=== PATIENT | female | born 1950 | race Caucasian/White ===

== ENCOUNTER 2016-06-17 09:09 | Day surgery (SDC) | payer MEDICARE, OTHER ==
[~2016-06-17 09:09] MED LIST: KETOROLAC TROMETHAMINE 0.45% 4 DROP/0.4 ML DROPERETTE OS PRN
[2016-06-17] MEDS: TROPICAMIDE 1% OPH SOLN 3 ML OS PRN ×3 (09:31→09:43)
[2016-06-17] MEDS: CYCLOPENTOLATE 0.2%/PHENYLEPHRINE 1% OPH SOLN 2 ML OS PRN ×3 (09:31→09:43)
[2016-06-17] MEDS: BESIFLOXACIN HCL 0.6% OPH SUSP 5 ML BOTTLE OS PRN ×4 (09:31→10:22)
[2016-06-17] MEDS: TETRACAINE HCL 0.5% OPH SOLN 2 ML OS PRN ×3 (09:31→09:57)
[2016-06-17] MEDS ORDERED: PHENYLEPHRINE/KETOROLAC 1%-0.3% 4 ML VIAL ONE (09:33)
[2016-06-17] MEDS ORDERED: LIDOCAINE 1% INJ-PF (10 MG/ML) 30 ML SDV ONE (09:33)
[2016-06-17] MEDS ORDERED: CHONDR SU A NA/HYALUR INTRAOC KIT (SURGICARE) ONE (09:33)
[2016-06-17] MEDS ORDERED: FENTANYL CITRATE INJ/PF 100 MCG/2 ML AMPUL ONE (09:44)
[2016-06-17] MEDS ORDERED: MIDAZOLAM 2 MG/2 ML INJ ONE (09:44)
--- NOTE | 2016-06-17 13:38 | [facility] DISCHARGE SUMMARY E ---
[facility] Discharge Summary NAME: DARWIN SMITH AGE: 66Y ADMITTED: 06/17/2016 DISCHARGED: 06/17/2016 HOSPITAL COURSE: This is a 66-year-old female who underwent cataract extraction of the left eye. DIAGNOSIS: Cataract, left eye. INDICATIONS: She underwent surgery because she was having difficulty driving secondary to glare from headlights and trouble seeing for quilting. DISCHARGE INSTRUCTIONS: She should be on a regular diet. No bending at her waist. No heavy lifting. She should use her Besivance, Ilevro, and Durezol at 3 p.m. and 8 p.m. and sleep with a rigid shield. I will see her for her 1 day postoperative tomorrow. DICTATING PHYSICIAN: LUIS LAWTON M.D. 1211M [id number] PHY#: [id number] ID: [id number] JOB#: [id number] ACCT: [id number] cc:LUIS LAWTON M.D. >
--- NOTE | 2016-06-17 13:38 | [facility] OPERATIVE REPORT E ---
[facility] Operative Report NAME: DARWIN SMITH AGE: 66Y DATE OF SURGERY: 06/17/2016 ROOM: PREOPERATIVE DIAGNOSIS: Cataract, left eye. POSTOPERATIVE DIAGNOSIS: Cataract, left eye. OPERATION: Cataract extraction with intraocular lens implant of the left eye. SURGEON: LUIS LAWTON M.D. ANESTHESIA: Topical. PROCEDURE: After obtaining appropriate consent, the patient's left eye was prepped and draped in sterile fashion as well as the surgeon in a sterile manner and cataract surgery was started. First a paracentesis blade was used to make a small side-port incision. Viscoelastic was used to inflate the anterior chamber. Next a 2.4 mm incision was made with the paracentesis blade. A continuous capsulorrhexis incision was made using a cystotome and Utrata forceps. Following this hydrodissection was carried out to make the lens fully loose and mobile and it was rotated 90 degrees. Following this, a sshirj-hbw-ttgzinu technique was used to phacoemulsify the lens with a CDE of 6.43. The remaining cortex was removed with irrigation/aspiration. Provisc was instilled into the capsular bag to inflate the bag. A SN60WF, 23.0 diopter lens was placed. The remaining viscoelastic material was removed with irrigation/aspiration. Following this, a 10-0 nylon suture was used to close the incision and it was found to be watertight. Vigamox was instilled in the eye and a protective shield was placed over the eye. The patient returned to the postoperative recovery in stable condition. DICTATING PHYSICIAN: LUIS LAWTON M.D. [id number] [id number] PHY#: [id number] ID: [id number] JOB#: [id number] ACCT: [id number] cc:LUIS LAWTON M.D. >
== END 2016-06-17 11:09 | disposition home or self-care (01) ==
LOC: SC 09:09
PROVIDERS: ATTEND Internal Medicine
PROC: 08RK3JZ Replacement of Left Lens with Synthetic Substitute, Percutaneous Approach (ICD-10-PCS; principal; 2016-06-17 10:00)
DX: H25.13 Age-related nuclear cataract, bilateral (principal); I10 Essential (primary) hypertension; M19.90 Unspecified osteoarthritis, unspecified site; E03.9 Hypothyroidism, unspecified; M79.7 Fibromyalgia; G25.0 Essential tremor; H18.50 Unspecified hereditary corneal dystrophies; H40.1414 Capsular glaucoma with pseudoexfoliation of lens, right eye, indeterminate stage; H43.812 Vitreous degeneration, left eye; Z88.4 Allergy status to anesthetic agent; Z79.899 Other long term (current) drug therapy; Z88.0 Allergy status to penicillin
CPT/HCPCS: 66984; V2632; J2250; J3490 ×2; A9270; J3010; C9447; 142

== ENCOUNTER 2016-07-08 06:52 | Day surgery (SDC) | payer MEDICARE, OTHER ==
[~2016-07-08 06:52] MED LIST changes: +KETOROLAC TROMETHAMINE 0.45% 4 DROP/0.4 ML DROPERETTE OD PRN; -KETOROLAC TROMETHAMINE 0.45% 4 DROP/0.4 ML DROPERETTE OS PRN
[2016-07-08] MEDS: TETRACAINE HCL 0.5% OPH SOLN 2 ML OD PRN ×3 (07:05→07:55)
[2016-07-08] MEDS: TROPICAMIDE 1% OPH SOLN 3 ML OD PRN ×3 (07:06→07:32)
[2016-07-08] MEDS: CYCLOPENTOLATE 0.2%/PHENYLEPHRINE 1% OPH SOLN 2 ML OD PRN ×3 (07:06→07:32)
[2016-07-08] MEDS ORDERED: LIDOCAINE 1% INJ-PF (10 MG/ML) 30 ML SDV ONE (07:07)
[2016-07-08] MEDS: BESIFLOXACIN HCL 0.6% OPH SUSP 5 ML BOTTLE OD PRN ×4 (07:07→08:22)
[2016-07-08] MEDS ORDERED: EPINEPHRINE INJ/PF 1 MG/1 ML AMPULE ONE (07:07)
[2016-07-08] MEDS ORDERED: PHENYLEPHRINE/KETOROLAC 1%-0.3% 4 ML VIAL ONE (07:33)
[2016-07-08] MEDS ORDERED: FENTANYL CITRATE INJ/PF 100 MCG/2 ML AMPUL ONE (07:35)
[2016-07-08] MEDS ORDERED: MIDAZOLAM 2 MG/2 ML INJ ONE ×3 (07:35→08:10)
[2016-07-08] MEDS: CHONDR SU A NA/HYALUR INTRAOC KIT (SURGICARE) ONE ×2 (08:13)
--- NOTE | 2016-07-08 12:34 | [facility] OPERATIVE REPORT E ---
[facility] Operative Report NAME: DARWIN SMITH AGE: 66Y DATE OF SURGERY: ROOM: PREOPERATIVE DIAGNOSIS: CATARACT, RIGHT EYE. POSTOPERATIVE DIAGNOSIS: CATARACT, RIGHT EYE. OPERATION: Cataract extraction with intraocular lens implant of the right eye. SURGEON: LUIS LAWTON M.D. ANESTHESIA: Topical. PROCEDURE: After obtaining appropriate consent, the patient's right eye was prepped and draped in sterile fashion as well as the surgeon in a sterile manner and cataract surgery was started. First a paracentesis blade was used to make a small side-port incision. Viscoelastic was used to inflate the anterior chamber. Next a 2.4 mm incision was made with the paracentesis blade. A continuous capsulorrhexis incision was made using a cystotome and Utrata forceps. Following this hydrodissection was carried out to make the lens fully loose and mobile and it was rotated 90 degrees. Following this, a shxgzc-jfw-fssszpl technique was used to phacoemulsify the lens with a CDE of 6.73. The remaining cortex was removed with irrigation/aspiration. Provisc was instilled into the capsular bag to inflate the bag. A SN60WF, 23.5 diopter lens was placed. The remaining viscoelastic material was removed with irrigation/aspiration. Following this, a 10-0 nylon suture was used to close the incision and it was found to be watertight. Vigamox was instilled in the eye and a protective shield was placed over the eye. The patient returned to the postoperative recovery in stable condition. DICTATING PHYSICIAN: LUIS LAWTON M.D. [id number] [id number] PHY#: [id number] ID: [id number] JOB#: [id number] ACCT: [id number] cc:LUIS LAWTON M.D. >
--- NOTE | 2016-07-08 12:39 | [facility] DISCHARGE SUMMARY E ---
[facility] Discharge Summary NAME: DARWIN SMITH AGE: 66Y ADMITTED: 07/08/2016 DISCHARGED: HISTORY: This is a 66-year-old female who underwent cataract of the right eye. FINAL DIAGNOSIS: Cataract, right eye. HOSPITAL COURSE: She underwent surgery. She was having difficulty seeing words on the television. DISCHARGE INSTRUCTIONS: 1. She should be on a regular diet. 2. No bending at her waist. No heavy lifting. 3. She should use Besivance, Ilevro, and Durezol at 3 p.m. and 8 p.m. and sleep with a rigid shield. 4. I will see her for a 1 day postoperative tomorrow. DICTATING PHYSICIAN: LUIS LAWTON M.D. 5011M [id number] PHY#: [id number] ID: [id number] JOB#: [id number] ACCT: [id number] cc:LUIS LAWTON M.D. >
== END 2016-07-08 09:12 | disposition home or self-care (01) ==
LOC: SC 06:52
PROVIDERS: ATTEND Internal Medicine
PROC: 08RJ3JZ Replacement of Right Lens with Synthetic Substitute, Percutaneous Approach (ICD-10-PCS; principal; 2016-07-08 08:00)
DX: H25.11 Age-related nuclear cataract, right eye (principal); Z96.1 Presence of intraocular lens; I10 Essential (primary) hypertension; Z96.659 Presence of unspecified artificial knee joint; Z87.891 Personal history of nicotine dependence; Z79.899 Other long term (current) drug therapy; Z88.0 Allergy status to penicillin
CPT/HCPCS: 66984; V2632; J2250; J3490 ×2; A9270; J3010; C9447; 142; J0171